=== PATIENT | female | born 1975 | race Caucasian/White ===

== ENCOUNTER 2016-07-15 21:02 | Emergency (ER) | payer OTHER ==
--- NOTE | ~2016-07-15 | EKG ---
PATIENT: RADHA CHRISTIANSON UNIT #: [id number] Ventricular Rate: 83 BPM Atrial Rate: 83 BPM P-R Interval: 156 ms QRS Duration: 90 ms Q-T Interval: 354 ms QTC Calculation(Bezet): 415 ms P [place]: 68 degrees Calculated R [place]: 73 degrees Calculated T [place]: 45 degrees Diagnosis Line: Normal sinus rhythm with sinus arrhythmia Diagnosis Line: Normal ECG Diagnosis Line: When compared with ECG of 11-JAN-2016 10:49, Diagnosis Line: No significant change was found Diagnosis Line: Confirmed by JESUS DODSON MD ([id number]) on Diagnosis Line: 08/17/2016 7:05:23 AM INTERPRETING MD: APARNA
[~2016-07-15 21:02] MED LIST: ASPIRIN81 MG; FENOFIBRATE67 MG PO; FISH OIL500 MG; FLEXERIL10 M1 PO; HYDROCODON-ACE1 EAC7 PO; HYDROCODONE/APA1 T16; LIPITOR; LOPID600 MG PO; NAPROSYN375 MG PO; NEURONTIN; NEURONTIN PO; ONDANSETRON ODT4 MG PO; RANITIDINE HCL150 M1; VOLTAREN75 MG PO; ZOFRAN
== END 2016-07-15 21:26 | disposition home or self-care (01) ==
LOC: SED 21:02
DX: R06.02 Shortness of breath (principal); R07.9 Chest pain, unspecified; F41.9 Anxiety disorder, unspecified; F31.9 Bipolar disorder, unspecified; F17.200 Nicotine dependence, unspecified, uncomplicated; Z90.710 Acquired absence of both cervix and uterus
CPT/HCPCS: 93005; 99283